=== PATIENT | female | born 1960 | race Caucasian/White ===

== ENCOUNTER → 2016-08-22 | Day surgery (SDC) | payer OTHER ==
[2016-08-12 15:49] VITALS: Ht 155.6 cm; Wt 63.6 kg
[2016-08-17 14:34] LABS: HEMATOCRIT 41.6 % (37-47); MEAN CELL VOLUME 87.8 fL (80-100); MEAN CORPUSCULAR HEMOGLOBIN 29.1 pg (25-34); MEAN CORPUSCULAR HGB CONC 33.2 g/dl (32-36); MEAN PLATELET VOLUME 9.8 fL (7.4-10.4); PLATELET COUNT 280 K/uL (130-400); RED BLOOD COUNT 4.74 M/uL (4.2-5.4); WHITE BLOOD COUNT 7.37 K/uL (4.8-10.8)
[2016-08-17 14:49] LABS: PROTHROMBIN TIME (PATIENT) 10.6 SECONDS (9.0-12.0)
[2016-08-17 15:05] LABS: CREATININE 0.58 mg/dl (0.60-1.20); POTASSIUM 3.8 mmol/L (3.5-5.1)
[~2016-08-22] VITALS: Ht 155.6 cm; Wt 63.6 kg
[~2016-08-22] MED LIST: ATROPINE SULFATE 0.1 MG/ML 5ML SYR IV PRN; BUPIVACAINE/EPINEPHRINE 0.5% MPF 1:200,000 30 ML VIAL ONE; CEFAZOLIN 1000MG/55 ML D5W IV SCH; DEXAMETHASONE SOD INJ 4 MG/ML VIAL ONE; EpHEDrine SULFATE 50MG/5ML SYR ONE; EpHEDrine SULFATE INJ 50 MG/ML AMP IV PRN; EpINEphrine INJ 1MG/ML AMP 1 MG/ML AMP ONE; FENTANYL CITRATE INJ 50 MCG/1 ML 2 ML VIAL ONE; FLUMAZENIL 0.1 MG/1 ML 10 ML VIAL IV PRN; GABA-112 PO; HYDROmorphone INJ 2 MG/ML SYR/VIAL IV PRN; LABETALOL HCL IV 5 MG/ML 20ML IV PRN; LACTATED RINGER'S 1000ML 1,000 ML IV SCH; LEVO100T PO; LIDOCAINE HCL 1% 20 ML VIAL ONE; LIDOCAINE HCL 2% 2 ML VIAL (20MG/ML) ONE; MEPERIDINE HCL 25 MG/ML CARP IV PRN; MIDAZOLAM HCL 1 MG/ML 2ML VIAL ONE; MULT-506 PO; MoRPHine SULFATE 2 MG/ML CARP IV PRN; MoRPHine SULFATE 4 MG/ML 1 ML CARP\\VIAL IV PRN; NALOXONE HCL 0.4 MG/1 ML VIAL/CARP IV PRN; NAPR-1169 PO; NF656 TOP; ONDANSETRON INJ 2 MG/ML 2 ML VIAL IV PRN; ONDANSETRON INJ 2 MG/ML 2 ML VIAL ONE; PHENYLEPHRINE 100MCG/ML 5ML SYR IV PRN; PROPOFOL IV EMULSION 10 MG/ML 20 ML VIAL IV ONE
--- NOTE | 2016-08-22 06:56 | History & Physical Bridge - [place] ---
H&P Re-Evaluation Bridge Note: I have examined the patient, reviewed the History & Physical and in the interval since the performance of the History & Physical I have noted the following changes of clinical significance: No changes noted
--- NOTE | 2016-08-22 09:21 | Discharge Instructions-SurgCtr ---
Discharge Instructions Date of Service August 22, 2016. Visit Reason for Visit: Right Knee Medial Collateral Ligament Avulsion Discharge Discharge Diagnosis / Problem: Status post Right knee arthroscopy chondroplasty , removal avulsion fragment Discharge Goals Goal(s): Decrease discomfort, Improve function, Increase independence Activity Recommendations Activity Limitations: per Instructions/Follow-up section May Resume Sexual Activity: when tolerated Shower/Bathe: may shower/bathe in 3 days Driving or Machine Use: Not while on narcotics, until regains WBAT after 2 weeks Weightbearing Status: Right partial (25%) Anesthesia . Post Anesthesia Instructions: If you have had General Anesthesia or IV Sedation: * Do not drive today. * Resume driving when surgeon permits. * Do not make important decisions or sign legal documents today. * Call surgeon for: 1. Temperature elevations greater than 101 degrees F. 2. Uncontrollable pain. 3. Excessive bleeding. 4. Persistent nausea and vomiting. 5. Medication intolerance (nausea, vomiting or rash). * For nausea and vomiting use only clear liquids such as: tea, soda, bouillon until nausea subsides, then gradually increase diet as tolerated. * If you have any concerns or questions, call your surgeon's office. If physician is unavailable and it is an emergency, call 911 or go to the nearest emergency room. . Instructions / Follow-Up Instructions / Follow-Up Dr. Epperson in 10-15 days. PT in 2-3 days. Diet Recommendations Home Diet: resume previous diet Procedures Procedures Performed: Right Knee Arthroscopic Debridement, Chondroplasty, Deep Removal Avulsion Fragment, Exam Under Anesthesia Pending Studies Studies pending at discharge: no Medical Emergencies . Who to Call and When: Medical Emergencies: If at any time you feel your situation is an emergency, please call 911 immediately. . Non-Emergent Contact Non-Emergency issues call your: Surgeon Call Non-Emergent contact if: temperature is above 101.5, your pain is not controlled, wound has increased drainage, wound has increased redness . . "Provider Documentation" section prepared by Joel Epperson. .
--- NOTE | 2016-08-22 09:24 | [facility] Operative Report ---
Operative Report Operative Date August 22, 2016. 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 2) Debridement/Excision medial Plicae. 3) Removal Avulsion Fragment, Deep. 4) Exam Under Anesthesia Surgeon Dr Epperson Food Service Agent Surgeon(s) Conner Crum PA-C (no fellow avail) Estimated Blood Loss 17 mL Findings The right knee was examined under anesthesia. Range of motion was 0-135. Ligamentous examination exhibited: stable Cezar, posterior drawer, varus and valgus stress at 0 & 30 degrees. ARTHROSCOPIC FINDINGS: 1) PATELLOFEMORAL JOINT: The articular cartilage of the Patella and Trochlea had Outerbridge type I changes. 2) GUTTERS: No loose bodies. There was an engaging medial plica. No evidence of intra-articular a avulsion fragment. 3) MEDIAL COMPARTMENT: The articular cartilage of the femur at type II changes from full extension to 30 of flexion toward the intercondylar notch and Tibia was intact. The medial meniscus was intact . 4) ACL/PCL: They were both visualized and probed to be intact. 5) LATERAL COMPARTMENT: The lateral compartment was then entered in a figure-of- four position. The femoral articular cartilage was intact, and tibial articular cartilage had diffuse type II changes. The lateral meniscus was normal. 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 I recommended that a right knee arthroscopy be performed with meniscus debridement, possible chondroplasty versus microfracture, and excision of the fragment arthroscopically versus open. The patient understands the risks of surgery, which include but not limited to: bleeding, infection, re-operation, damage to nerves and arteries, continued knee pain, progression of OA, DVT, and a 2-5% risk of becoming worse after surgery. The patient understands all of these instructions and explanations, all of his questions have been satisfactorily addressed and the patient has elected to proceed. Informed consent was signed. Description of Procedure The patient was taken to the Operating Room and placed in the supine position after general anesthetic was administered. My initials and a multidisciplinary time-out were used to identify the right leg as the correct operative limb. Prior to the incision, 1 gram of intravenous Ancef was given. The right knee was then injected with 20cc of a 50:50 mix of 1% Lidocaine plain and 0.5% Bupivacaine with epinephrine in a sterile fashion using the superolateral portal. The right leg was then prepped and draped in a standard sterile fashion. The anterolateral, anteromedial portals , and the medial incision over the MCL were injected with the 50:50 mixture noted above, for a total of 10cc, in the standard fashion. An anterolateral arthroscopic portal was established with an 11-blade. Next, the arthroscope was introduced into the knee. A diagnostic arthroscopy commenced anteromedial portal was established under direct visualization using a spinal needle followed by an 11 blade in the standard fashion. The above findings were observed during the diagnostic arthroscopy. The medial plicae and anterior fat pad were excised with a mechanical shaver. The articular cartilage damage was debrided back to stable margins as they were encountered with mechanical shaver. The knee was copiously irrigated. The arthroscopic instruments were then removed. Our attention was then drawn towards the a avulsion fragment over the MCL. Fluoroscopy was brought in to localize the fragment. A 4 cm incision was centered over the fragment. The overlying fascia was incised to expose the proximal aspect of the MCL which was also incised in line with its fibers. There was some scar tissue and a bony prominence which was debrided with combination of roller sure, irrigation, suction, and smoothed out with a rasp. This was again checked with fluoroscopy and portable film to ensure the fragment was removed. The wound was copiously irrigated. Testing of the MCL with valgus stress at zero and 30 remains stable. The MCL was repaired with 0 Vicryl in a running locking fashion. The deep fascia was closed with 2-0 Vicryl. The subcuticular layer was closed with 3-0 Vicryl. The skin was closed with a running subcuticular with 3-0 Prolene. Steri-Strips were placed over top of the medial incision. The portals were closed with 3-0 Prolene in a standard fashion. The wound was dressed with Xeroform gauze, sterile gauze, ABDs, sterile Webril, and a foot to thigh Lambert bandage. The patient was placed back into her hinged range of motion brace. The patient was then transferred to the Recovery Room in stable condition. The sponge and needle counts were correct. Post-op Instructions: The patient will be PWB 25%. The patient may remove the operative dressing on Post-Op Day #2 and apply Band-Aids to the wounds. The patient may shower in 72 hours and is to wear the MELISSA for 2 weeks on the operative limb. The patient is to use the pain medicine as needed and take the ASA for 2 weeks. The patient was also given a handout for home quad strengthening and seated self-assisted ROM exercises, which they may begin tomorrow. The patient was given a prescription for PT and is scheduled for an appointment later this week. The patient is to follow up with me in 10-15 days. I attest to the content of the Intraoperative Record and any orders documented therein. Any exceptions are noted below.
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
[2016-08-22] MEDS: FENTANYL CITRATE INJ 50 MCG/1 ML 2 ML VIAL IV PRN ×4 (09:35→10:00)
[2016-08-22 10:24] VITALS: TEMP 36.7
--- NOTE | 2016-08-22 10:29 | Anesthesia Progress Nt - [facility] ---
Anesthesia Post Op Note Date & Time August 22, 2016 at 10:30 Vital Signs Pain Intensity: 3 Vital Signs Past 12 Hours Date Time Temp Pulse Resp B/P Pulse Ox O2 Delivery O2 Flow Rate FiO2 08/22/16 10:24 36.7 78 16 126/81 95 Room Air 08/22/16 10:13 37.2 08/22/16 10:10 94 22 128/89 94 08/22/16 10:10 94 22 08/22/16 10:06 Room Air 08/22/16 10:05 96 16 08/22/16 10:05 97 16 152/84 97 08/22/16 10:00 101 15 147/92 93 08/22/16 10:00 101 15 08/22/16 09:55 99 12 142/83 98 08/22/16 09:55 96 12 08/22/16 09:50 99 13 126/83 99 08/22/16 09:50 98 13 08/22/16 09:45 93 17 08/22/16 09:45 90 17 138/84 98 08/22/16 09:40 101 17 134/80 98 08/22/16 09:40 100 17 08/22/16 09:35 97 13 133/82 98 08/22/16 09:35 97 13 08/22/16 09:30 101 16 139/86 98 08/22/16 09:30 100 16 08/22/16 09:21 36.8 113 16 129/91 97 Diffusion Mask 5 08/22/16 06:30 36.7 88 16 127/77 95 Room Air Notes Mental Status: alert / awake / arousable, participated in evaluation Pt Amnestic to Procedure: Yes Nausea / Vomiting: adequately controlled Pain: adequately controlled, improving with treatment Airway Patency, RR, SpO2: stable & adequate BP & HR: stable & adequate Hydration State: stable & adequate Anesthetic Complications: no major complications apparent
[2016-08-22] MEDS: OXYCODONE/ACETAMINOPHEN 5-325 TAB PO PRN ×2 (10:42→11:01)
[2016-08-22 11:15] VITALS: BP 119/76; PULSE 89; O2SAT 97
== END | disposition home or self-care (01) ==
LOC: X.SURG 06:08
PROVIDERS: ATTEND Orthopaedic Surgery Sports Medicine
DX: S83.411A Sprain of medial collateral ligament of right knee, initial encounter (principal); V49.9XXA Car occupant (driver) (passenger) injured in unspecified traffic accident, initial encounter; E89.0 Postprocedural hypothyroidism; Z90.89 Acquired absence of other organs; Z90.710 Acquired absence of both cervix and uterus; F17.210 Nicotine dependence, cigarettes, uncomplicated